=== PATIENT | male | born 1950 | race Hispanic/Latino ===

== ENCOUNTER → 2019-07-30 | Day surgery (SDC) | payer MEDICARE ==
[2019-07-05 11:01] LABS: BASOPHILS % 0.3 % (0.0-1.0); EOSINOPHILS % 0.4 % (0.0-6.0); HEMATOCRIT 48.4 % (38.2-49.6); HEMOGLOBIN 15.7 g/dL (14.0-18.0); LYMPHOCYTES # (AUTO) 1.6 (1.0-3.2); LYMPHOCYTES % 23.2 % (18.0-39.1); MEAN CORPUSCULAR HEMOGLOBIN 31.3 pg (28-32); MEAN CORPUSCULAR HGB CONC 32.4 g/dL (31-35); MEAN CORPUSCULAR VOLUME 96.4 fL (81-99); MONOCYTES # (AUTO) 0.6 (0.2-0.8); MONOCYTES % 8.1 % (4.4-11.3); NEUTROPHILS # (AUTO) 4.8 (2.1-6.9); NEUTROPHILS % 67.6 % (38.7-80.0); PLATELET COUNT 229 x10e3/uL (140-360); RED BLOOD COUNT 5.02 x10e6/uL (4.3-5.7)
--- NOTE | 2019-07-05 12:08 | Diagnostic Imaging Report ---
EXAMINATION: CHEST 2 VIEWS INDICATION: Pre-operative COMPARISON: None FINDINGS: LINES/TUBES:None LUNGS:The lungs are well-inflated. No focal consolidation or pulmonary edema. PLEURA:No pleural effusion or pneumothorax. MEDIASTINUM:The cardiomediastinal silhouette appears normal in size and shape. BONES/SOFT TISSUES:No acute osseous injury. ABDOMEN:No free air under the diaphragm. Status post cholecystectomy. IMPRESSION: No focal pneumonia or pulmonary edema. Signed by: Jessica Cuevas MD on 07/05/2019 12:05 PM
[~2019-07-30] MED LIST: CEFAZOLIN SOD 1 GM/NS 50ML 50 ML IV ONE; DEXAMETHASONE SOD PHOS INJ 4 MG/ML VIAL ONE; EPINEPHRINE 1 MG/ML 30ML VIAL ONE; EPINEPHRINE HCL 1:1000 1ML 1 MG/ML AMP ONE; FENTANYL CITRATE/PF 100MCG/2 ML INJ ONE; HYDROCODONE/APAP 7.5MG-325MG 1 EA TAB ONE; KETOROLAC TROMETHAMINE 30 MG/ML VIAL ONE; LIDOCAINE HCL 2% LOCAL 20 ML VIAL ONE; LIDOCAINE HCL 2% LOCAL INJ 5 ML SDV VIAL INJ ONE; LOSARTAN POTAS100 MG PO; MIDAZOLAM HCL 2 MG/2 ML VIAL ONE; ONDANSETRON HCL INJ 2MG/ML 2ML 2 MG/ML VIAL ONE; PRAVASTATIN SOD10 MG PO; PROPOFOL IV EMULSION 10 MG/ML 20 ML VIAL ONE; ROCURONIUM BROMIDE 10 MG/ML 5ML VIAL ONE; ROPIVACAINE 0.5% 5 MG/ML 30 ML SDV ONE; SEVOFLURANE INHAL SOLN 250 ML PEN BTL ONE
[2019-07-30 10:45] VITALS: BP 143/80
--- NOTE | 2019-07-30 14:20 | Operative Report ---
DATE OF PROCEDURE: 07/30/2019 SURGEON: Gavin Tineo MD BLEACH SUPERVISOR: Yan Knox, certified PA. PREOPERATIVE DIAGNOSIS: Right shoulder rotator cuff tear. POSTOPERATIVE DIAGNOSIS: Right shoulder rotator cuff tear. PROCEDURES: Right shoulder arthroscopy, subacromial decompression, biceps tenotomy, and rotator cuff repair. INDICATIONS: The patient is a 69-year-old gentleman, who has clinic signs and symptoms consistent with a rotator cuff tear in his right shoulder. He has failed conservative management and would like to proceed with a surgical repair. The risks and benefits have been explained. The lengthy recovery have been explained. He states he understands and wishes to proceed. PROCEDURE IN DETAIL: The patient was brought to the operating room and placed under general anesthetic. He received prophylactic antibiotics and a regional block in the holding area. He was positioned in the beach chair position on the shoulder table. His right upper extremity was prepped and draped in a sterile manner. A preoperative time-out was performed. A standard posterior arthroscopy portal was established. The shoulder was insufflated with sterile saline and systematically inspected. Immediately, noted there was a large tear of the supraspinatus, extending back into the infraspinatus. The biceps tendon was frayed. There was extensive synovitis. A lateral working portal was established. An Electroblade shaver was introduced into the shoulder joint. A partial synovectomy was performed with the electrocauterized. The biceps tendon was released at the supraglenoid tubercle. Fraying and degenerative tearing of the labrum was debrided back to a stable margin. The articular surfaces of the glenohumeral surfaces were otherwise well preserved with some minor age-related changes. The scope was placed into the subacromial space. A subacromial bursectomy was performed. A subacromial bone decompression was performed. A portion of the coracoacromial ligament was released. The lateral gutter was opened up. A pair of biting forceps was used to debride the rotator cuff tendon back to healthy bleeding tissue. The greater tuberosity was decorticated. An Arthrex Speed Bridge construct was used to repair the rotator cuff. Two bioabsorbable suture anchors preloaded with FiberTape stitches were seated at the articular margin. These were passed through the rotator cuff using an Arthrex Scorpion suture passer. An anterior shuttle portal was established. The sutures were then passed into a secondary bioabsorbable suture anchor. These two suture anchors were used to repair the stitches in an anterior to posterior and posterior to anterior construct, with one stitch each from each suture anchor. Nice secure fixation was obtained. None of the auxiliary stitches were felt to be necessary. The tendon was probed and photographed. The arthroscopic instruments were removed. The portal incisions were closed with nylon stitches. A sterile bandage was applied. He was placed into an UltraSling. Estimated blood loss was less than 20 mL. All needle and sponge counts were correct. Gavin Tineo MD DR/ALON /[id number]
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
== END | disposition home or self-care (01) ==
LOC: OR 05:50
PROVIDERS: ATTEND Specialist
DX: M75.121 Complete rotator cuff tear or rupture of right shoulder, not specified as traumatic (principal); M65.811 Other synovitis and tenosynovitis, right shoulder; R03.0 Elevated blood-pressure reading, without diagnosis of hypertension; Z01.810 Encounter for preprocedural cardiovascular examination; Z01.812 Encounter for preprocedural laboratory examination; Z01.818 Encounter for other preprocedural examination; Z68.34 Body mass index [BMI] 34.0-34.9, adult
CPT/HCPCS: 29827; 36415; 71046; 85025; 93005; C1713 ×3; J0171; J0690; J1100; J1885; J2001 ×2; J2250; J2405; J2704; J2795; J3010

== ENCOUNTER 2024-09-02 16:57 | Inpatient (IN) | payer MEDICARE ==
[~2024-09-02] VITALS: Ht 170.2 cm; Wt 99.8 kg
[~2024-09-02 16:57] MED LIST changes: -CEFAZOLIN SOD 1 GM/NS 50ML 50 ML IV ONE; -DEXAMETHASONE SOD PHOS INJ 4 MG/ML VIAL ONE; -EPINEPHRINE 1 MG/ML 30ML VIAL ONE; -EPINEPHRINE HCL 1:1000 1ML 1 MG/ML AMP ONE; -FENTANYL CITRATE/PF 100MCG/2 ML INJ ONE; -HYDROCODONE/APAP 7.5MG-325MG 1 EA TAB ONE; -KETOROLAC TROMETHAMINE 30 MG/ML VIAL ONE; -LIDOCAINE HCL 2% LOCAL 20 ML VIAL ONE; -LIDOCAINE HCL 2% LOCAL INJ 5 ML SDV VIAL INJ ONE; -MIDAZOLAM HCL 2 MG/2 ML VIAL ONE; -ONDANSETRON HCL INJ 2MG/ML 2ML 2 MG/ML VIAL ONE; -PROPOFOL IV EMULSION 10 MG/ML 20 ML VIAL ONE; -ROCURONIUM BROMIDE 10 MG/ML 5ML VIAL ONE; -ROPIVACAINE 0.5% 5 MG/ML 30 ML SDV ONE; -SEVOFLURANE INHAL SOLN 250 ML PEN BTL ONE
[2024-09-02 17:37] LABS: BASOPHILS # (AUTO) 0.1 (0.0-0.1); BASOPHILS % 0.8 % (0.0-1.0); EOSINOPHILS # (AUTO) 0.1 (0.0-0.4); EOSINOPHILS % 2.3 % (0.0-6.0); HEMATOCRIT 41.4 % (38.2-49.6); HEMOGLOBIN 13.9 g/dL (14.0-18.0); LYMPHOCYTES # (AUTO) 1.6 (1.0-3.2); LYMPHOCYTES % 26.4 % (18.0-39.1); MEAN CORPUSCULAR HEMOGLOBIN 32.1 pg (28-32); MEAN CORPUSCULAR HGB CONC 33.6 g/dL (31-35); MEAN CORPUSCULAR VOLUME 95.6 fL (81-99); MONOCYTES # (AUTO) 0.9 (0.2-0.8); MONOCYTES % 14.5 % (4.4-11.3); NEUTROPHILS # (AUTO) 3.4 (2.1-6.9); NEUTROPHILS % 55.3 % (38.7-80.0); PLATELET COUNT 353 x10e3/uL (140-360); RED BLOOD COUNT 4.33 x10e6/uL (4.3-5.7); RED CELL DISTRIBUTION WIDTH 12.7 % (11.7-14.4); WHITE BLOOD COUNT 6.14 x10e3/uL (4.8-10.8)
[2024-09-02 17:59] LABS: ALBUMIN 3.2 g/dL (3.5-5.0); ALBUMIN/GLOBULIN RATIO 0.9 (0.8-2.0); ANION GAP 16.9 mmol/L (8-16); BILIRUBIN,TOTAL 0.4 mg/dL (0.2-1.2); CREATININE, SERUM 1.19 mg/dL (0.72-1.25); POTASSIUM 3.9 mmol/L (3.5-5.1); TOTAL PROTEIN 6.9 g/dL (6.5-8.1)
[2024-09-02] MEDS ORDERED: TETANUS/DIPHTHERIA TOX ADULT 0.5 ML SYR IM ONE (18:00)
[2024-09-02] MEDS: Morphine 4mg INJECTION 4 MG/ML INJ IV STA (19:31)
[2024-09-02] MEDS: ONDANSETRON HCL INJ 2MG/ML 2ML 2 MG/ML VIAL IV STA (19:32)
[2024-09-02 20:37] VITALS: PULSE 68; RESP 18; TEMP 98.3
[2024-09-02] MEDS: SODIUM CHLORIDE 0.9% 1000ML 1,000 ML IV SCH (21:56)
[2024-09-02 22:09] VITALS: BP 169/129; PULSE 70; RESP 18; TEMP 98.7; O2SAT 100
[2024-09-02 22:16] VITALS: BP 169/129; PULSE 70; RESP 18; TEMP 98.7; O2SAT 98
[2024-09-02] MEDS: ONDANSETRON HCL INJ 2MG/ML 2ML 2 MG/ML VIAL IV PRN (22:42)
[2024-09-02] MEDS: Morphine 4mg INJECTION 4 MG/ML INJ IV PRN (22:43)
[2024-09-03] VITALS (9 sets, daily range): BP systolic 101–152; BP diastolic 46–83; PULSE 60–75; RESP 18–20; TEMP 97.8–98.6; O2SAT 96–100
[2024-09-03] MEDS ORDERED: TAMSULOSIN PO (03:52)
[2024-09-03] MEDS ORDERED: OMEPRAZOLE20 MG PO (03:52)
[2024-09-03 06:12] LABS: BASOPHILS % 0.7 % (0.0-1.0); EOSINOPHILS # (AUTO) 0.2 (0.0-0.4); EOSINOPHILS % 2.6 % (0.0-6.0); HEMATOCRIT 38.6 % (38.2-49.6); HEMOGLOBIN 12.6 g/dL (14.0-18.0); LYMPHOCYTES % 33.8 % (18.0-39.1); MEAN CORPUSCULAR HEMOGLOBIN 31.7 pg (28-32); MEAN CORPUSCULAR HGB CONC 32.6 g/dL (31-35); MEAN CORPUSCULAR VOLUME 97.2 fL (81-99); MONOCYTES % 15.7 % (4.4-11.3); NEUTROPHILS # (AUTO) 2.8 (2.1-6.9); NEUTROPHILS % 46.5 % (38.7-80.0); PLATELET COUNT 329 x10e3/uL (140-360); RED BLOOD COUNT 3.97 x10e6/uL (4.3-5.7); RED CELL DISTRIBUTION WIDTH 12.9 % (11.7-14.4); WHITE BLOOD COUNT 6.04 x10e3/uL (4.8-10.8)
[2024-09-03 06:52] LABS: ALBUMIN 2.7 g/dL (3.5-5.0); ALBUMIN/GLOBULIN RATIO 0.8 (0.8-2.0); ANION GAP 13.8 mmol/L (8-16); BILIRUBIN,TOTAL 0.5 mg/dL (0.2-1.2); CALCIUM 8.6 mg/dL (8.4-10.2); CREATININE, SERUM 1.11 mg/dL (0.72-1.25); POTASSIUM 3.8 mmol/L (3.5-5.1); TOTAL PROTEIN 5.9 g/dL (6.5-8.1)
[2024-09-03] MEDS ORDERED: Vancomycin IV 1 GM in SODIUM CHLORIDE 0.9% 250ML 250 ML IV SCH ×2 (11:30→12:00)
[2024-09-03] MEDS ORDERED: DOCUSATE SODIUM 100 MG CAP PO PRN (11:30)
[2024-09-03] MEDS ORDERED: METOPROLOL TARTRATE INJ 1 MG/ML VIAL IV PRN (11:30)
[2024-09-03] MEDS ORDERED: ALBUTEROL/IPRATROPIUM 3 ML NEB NEB PRN (11:30)
[2024-09-03 12:36] LABS: CHOL/HDL RATIO 5.1 (3.9-4.7)
[2024-09-03] MEDS: Vancomycin IV 1 GM in SODIUM CHLORIDE 0.9% 250ML 250 ML IV SCH (13:58)
[2024-09-03] MEDS: ENOXAPARIN SOD INJ 40 MG/0.4 ML SYR SC SCH (17:25)
[2024-09-03] MEDS: FAMOTIDINE 20 MG TAB PO SCH (17:25)
[2024-09-04] VITALS (9 sets, daily range): BP systolic 106–147; BP diastolic 59–85; PULSE 61–78; RESP 18–21; TEMP 97.7–98.6; O2SAT 94–100
[2024-09-04 05:41] LABS: BASOPHILS # (AUTO) 0.1 (0.0-0.1); BASOPHILS % 0.8 % (0.0-1.0); EOSINOPHILS # (AUTO) 0.1 (0.0-0.4); EOSINOPHILS % 1.7 % (0.0-6.0); HEMOGLOBIN 12.2 g/dL (14.0-18.0); LYMPHOCYTES % 31.1 % (18.0-39.1); MEAN CORPUSCULAR HEMOGLOBIN 31.6 pg (28-32); MEAN CORPUSCULAR HGB CONC 32.1 g/dL (31-35); MEAN CORPUSCULAR VOLUME 98.4 fL (81-99); MONOCYTES # (AUTO) 0.9 (0.2-0.8); MONOCYTES % 14.4 % (4.4-11.3); NEUTROPHILS # (AUTO) 3.2 (2.1-6.9); NEUTROPHILS % 51.4 % (38.7-80.0); PLATELET COUNT 322 x10e3/uL (140-360); RED BLOOD COUNT 3.86 x10e6/uL (4.3-5.7); RED CELL DISTRIBUTION WIDTH 12.9 % (11.7-14.4)
[2024-09-04 06:10] LABS: ANION GAP 12.8 mmol/L (8-16); CALCIUM 8.7 mg/dL (8.4-10.2); CREATININE, SERUM 1.02 mg/dL (0.72-1.25); POTASSIUM 3.8 mmol/L (3.5-5.1)
[2024-09-05] VITALS (9 sets, daily range): BP systolic 124–156; BP diastolic 59–76; PULSE 62–79; RESP 18–20; TEMP 97.6–98.4; O2SAT 96–100
[2024-09-05] MEDS: MELATONIN 3 MG TAB PO PRN (00:02)
[2024-09-05 05:35] LABS: BASOPHILS % 0.3 % (0.0-1.0); EOSINOPHILS # (AUTO) 0.1 (0.0-0.4); EOSINOPHILS % 1.4 % (0.0-6.0); HEMATOCRIT 37.2 % (38.2-49.6); HEMOGLOBIN 12.3 g/dL (14.0-18.0); LYMPHOCYTES % 27.7 % (18.0-39.1); MEAN CORPUSCULAR HEMOGLOBIN 31.8 pg (28-32); MEAN CORPUSCULAR HGB CONC 33.1 g/dL (31-35); MEAN CORPUSCULAR VOLUME 96.1 fL (81-99); MONOCYTES # (AUTO) 0.9 (0.2-0.8); MONOCYTES % 12.7 % (4.4-11.3); NEUTROPHILS # (AUTO) 4.1 (2.1-6.9); NEUTROPHILS % 57.6 % (38.7-80.0); PLATELET COUNT 311 x10e3/uL (140-360); RED BLOOD COUNT 3.87 x10e6/uL (4.3-5.7); RED CELL DISTRIBUTION WIDTH 12.4 % (11.7-14.4)
[2024-09-05 05:59] LABS: ANION GAP 12.5 mmol/L (8-16); CALCIUM 8.6 mg/dL (8.4-10.2); CREATININE, SERUM 0.87 mg/dL (0.72-1.25); POTASSIUM 3.5 mmol/L (3.5-5.1)
[2024-09-05] MEDS: VANCOMYCIN 1.25GM/250 ML (PEG) 250 ML IV SCH (13:27)
[2024-09-06] VITALS (11 sets, daily range): BP systolic 121–171; BP diastolic 54–74; PULSE 57–79; RESP 17–20; TEMP 97.6–98.4; O2SAT 95–100
[2024-09-06] MEDS ORDERED: LIDOCAINE HCL 2% LOCAL INJ 5 ML SDV VIAL INJ ONE (11:46)
[2024-09-06] MEDS ORDERED: PROPOFOL IV EMULSION 10 MG/ML 20 ML VIAL ONE (11:46)
[2024-09-06] MEDS ORDERED: FENTANYL CITRATE/PF 100MCG/2 ML INJ ONE (11:46)
[2024-09-06] MEDS ORDERED: ONDANSETRON HCL INJ 2MG/ML 2ML 2 MG/ML VIAL ONE (11:49)
[2024-09-06] MEDS ORDERED: DEXAMETHASONE SOD PHOS INJ 4 MG/ML SDV ONE (11:49)
[2024-09-06] MEDS ORDERED: ACETAMINOPHEN 1000 MG/100 ML 100 ML IV ONE (12:23)
[2024-09-06] MEDS: SODIUM CHLORIDE 0.9% 100 ML ONE (21:32)
[2024-09-06] MEDS: PIPERACILLIN/TAZOBACTAM 3.375 GM VIAL ONE (21:32)
[2024-09-07] VITALS (8 sets, daily range): BP systolic 137–151; BP diastolic 59–82; PULSE 62–82; RESP 17–20; TEMP 97.9–98.2; O2SAT 97–99
[2024-09-07] MEDS: METOPROLOL TARTRATE 25 MG TAB PO SCH (12:41)
[2024-09-08] VITALS (12 sets, daily range): BP systolic 130–150; BP diastolic 67–90; PULSE 61–75; RESP 16–20; TEMP 97.6–99; O2SAT 96–100
[2024-09-08] MEDS ORDERED: BENZONATATE 100 MG CAP PO PRN (10:45)
[2024-09-08] MEDS ORDERED: AMLODIPINE BESY10 MG PO (14:10)
[2024-09-08] MEDS ORDERED: CRESTOR40 MG PO (14:10)
[2024-09-09] VITALS (8 sets, daily range): BP systolic 118–157; BP diastolic 68–88; PULSE 57–78; RESP 17–21; TEMP 97.9–98.3; O2SAT 96–100
[2024-09-09] MEDS: CEFTRIAXONE 2 GM in SODIUM CHLORIDE 0.9% 100 ML IV SCH (09:56)
[2024-09-10] VITALS (9 sets, daily range): BP systolic 111–147; BP diastolic 54–99; PULSE 56–98; RESP 17–20; TEMP 97.7–98.2; O2SAT 98–100
[2024-09-11] VITALS (10 sets, daily range): BP systolic 109–142; BP diastolic 63–91; PULSE 51–71; RESP 18–20; TEMP 97.6–98.1; O2SAT 96–100
[2024-09-11] MEDS: ACETAMINOPHEN 325 MG TAB PO PRN (02:29)
[2024-09-12] VITALS (7 sets, daily range): BP systolic 132–135; BP diastolic 67–75; PULSE 53–72; RESP 17–20; TEMP 97.8–98; O2SAT 95–100
== END 2024-09-12 20:54 | DRG 464 ==
LOC: ER 17:44 → ERHOLD 19:33 → MED/SURG2 20:50 → OBSVTOIN 09-03 11:21
PROVIDERS: ADMIT Internal Medicine; ATTEND Internal Medicine
PROC: 0JBQ0ZZ Excision of Right Foot Subcutaneous Tissue and Fascia, Open Approach (ICD-10-PCS; 2024-09-06)
PROC: 05HC33Z Insertion of Infusion Device into Left Basilic Vein, Percutaneous Approach (ICD-10-PCS; principal; 2024-09-07)
PROC: 3E03329 Introduction of Other Anti-infective into Peripheral Vein, Percutaneous Approach (ICD-10-PCS; 2024-09-07)
DX: M86.171 Other acute osteomyelitis, right ankle and foot (principal); L02.611 Cutaneous abscess of right foot; L03.115 Cellulitis of right lower limb; S91.341A Puncture wound with foreign body, right foot, initial encounter; L03.031 Cellulitis of right toe; M89.771 Major osseous defect, right ankle and foot; M19.071 Primary osteoarthritis, right ankle and foot; I10 Essential (primary) hypertension; E78.5 Hyperlipidemia, unspecified; I48.91 Unspecified atrial fibrillation; W26.8XXA Contact with other sharp object(s), not elsewhere classified, initial encounter; E66.9 Obesity, unspecified; Z68.34 Body mass index [BMI] 34.0-34.9, adult; Z23 Encounter for immunization; Z13.1 Encounter for screening for diabetes mellitus
CPT/HCPCS: 36415; 36568; 80048; 80053; 80061; 80202; 82948; 83036; 85025; 86140; 87040; 87071; 87075; 87205; 94799; 99284; G0378; J0696; J1100; J1650; J2003; J2270; J2405; J2543; J7030; J7050